=== PATIENT | male | born 1935 | race Caucasian/White ===

== ENCOUNTER 2016-06-07 11:44 | Inpatient (IN) | payer OTHER ==
[~2016-06-07] VITALS: Ht 167.6 cm; Wt 74.4 kg
[~2016-06-07 11:44] MED LIST: ACTOS15 MG PO; AQUAPHOR OINTM105 GM TP; Bactrim,Septra DS 80 PO; Cipro PO; DIOVAN320 MG PO; Diabeta,Micronase PO; Ecotrin PO; Glucophage PO; Lasix PO; Lopressor PO; Neurontin PO; PERCOCET 10/1 TABLET PO; Plavix PO; Pravachol PO
[2016-06-07 13:01] LABS: MCH 29.3 PG (29.0-34.0); MCHC 33.3 G/DL (30.0-36.0); MCV 88.1 FL (86-99); MEAN PLAT.VOLUME 9.8 uM^3 (9.0-12.4); PLATELET COUNT 164 K/uL (156-360); RBC DIS.WIDTH-CV 12.6 % (11.8-14.6); RBC DIS.WIDTH-SD 40.7 % (39-53); RED BLOOD COUNT 4.54 M/uL (4.00-5.50); WHITE BLOOD COUNT 9.9 K/uL (4.1-10.2)
[2016-06-07 13:38] LABS: TROP-I INTERPRETATION NEGATIVE; TROPONIN-I 0.28 ng/mL (0.0-0.30)
[2016-06-07 13:39] LABS: ANION GAP 11 MEQ/L (2-14); CHLORIDE 104 MEQ/L (99-109); GFR ESTIMATE (CALCULATED) 48 mL/min/; GLUCOSE 229 mg/dL (70-99); POTASSIUM 4.6 MEQ/L (3.7-5.4); SAMPLE HEMOLYSIS CHECK 0; SAMPLE ICTERIC CHECK 0; SAMPLE LIPEMIA CHECK 0; SODIUM 140 MEQ/L (136-147); UREA NITROGEN (BUN) 35 mg/dL (9-23)
[2016-06-07 15:22] LABS: TROP-I INTERPRETATION NEGATIVE; TROPONIN-I 0.27 ng/mL (0.0-0.30)
[2016-06-07] MEDS ORDERED: GABAPENTIN400 MG PO (20:21)
[2016-06-07] MEDS ORDERED: LO-DOSE ASPIRIN81 M2 PO (20:21)
[2016-06-07] MEDS ORDERED: PLAVIX75 MG PO (20:21)
[2016-06-07] MEDS ORDERED: METOPROLOL TART50 MG PO (20:21)
[2016-06-07] MEDS ORDERED: PRAVASTATIN SOD80 MG PO (20:24)
[2016-06-07] MEDS ORDERED: GLIPIZIDE5 MG PO (20:24)
[2016-06-07] MEDS ORDERED: DIOVAN HCT 31 TABLET PO (20:24)
[2016-06-07] MEDS ORDERED: METFORMIN HCL500 MG PO (20:24)
[2016-06-07] MEDS ORDERED: PERCOCET 7.51 TABLET PO ×2 (20:25)
[2016-06-07 21:01] VITALS: BP 177/74
[2016-06-07 21:55] LABS: POINT-OF-CARE METER ID UU13113831
[2016-06-07 23:09] LABS: TROP-I INTERPRETATION NEGATIVE; TROPONIN-I 0.25 ng/mL (0.0-0.30)
[2016-06-08] VITALS (12 sets, daily range): BP systolic 112–180; BP diastolic 37–80
[2016-06-08 07:18] LABS: HEMATOCRIT 37.8 % (38.0-50.0); MCH 29.2 PG (29.0-34.0); MCHC 33.3 G/DL (30.0-36.0); MCV 87.5 FL (86-99); MEAN PLAT.VOLUME 9.7 uM^3 (9.0-12.4); PLATELET COUNT 154 K/uL (156-360); RBC DIS.WIDTH-CV 12.6 % (11.8-14.6); RED BLOOD COUNT 4.32 M/uL (4.00-5.50); WHITE BLOOD COUNT 10.1 K/uL (4.1-10.2)
[2016-06-08 07:29] LABS: ANION GAP 10 MEQ/L (2-14); CHLORIDE 109 MEQ/L (99-109); GFR ESTIMATE (CALCULATED) 52 mL/min/; GLUCOSE 227 mg/dL (70-99); POTASSIUM 4.5 MEQ/L (3.7-5.4); SAMPLE HEMOLYSIS CHECK 0; SAMPLE ICTERIC CHECK 0; SAMPLE LIPEMIA CHECK 0; SODIUM 142 MEQ/L (136-147); UREA NITROGEN (BUN) 31 mg/dL (9-23)
[2016-06-08 07:35] LABS: TROP-I INTERPRETATION NEGATIVE; TROPONIN-I 0.21 ng/mL (0.0-0.30); TROPONIN-I 0.23 ng/mL (0.0-0.30)
[2016-06-08 12:18] LABS: TROP-I INTERPRETATION NEGATIVE; TROPONIN-I 0.23 ng/mL (0.0-0.30)
[2016-06-08 12:57] LABS: POINT-OF-CARE METER ID UU13113803
[2016-06-08 13:46] LABS: METH RESISTANT S AUREUS PCR NEGATIVE (NEGATIVE)
[2016-06-08 13:48] LABS: PROBE CHECK PASS; SPECIMEN PROCESSING CONTROL PASS
[2016-06-08 14:47] LABS: INTER. NORMALIZED RATIO 1.2; PROTHROMBIN TIME 12.1 (9.2-11.2); PTT 35.9 (25-32)
[2016-06-08 18:06] LABS: POINT-OF-CARE METER ID UU14174217
[2016-06-08 22:45] LABS: POINT-OF-CARE METER ID UU14174217
[2016-06-09] VITALS (13 sets, daily range): BP systolic 106–149; BP diastolic 44–63
[2016-06-09 09:08] LABS: MCH 29.5 PG (29.0-34.0); MCHC 33.8 G/DL (30.0-36.0); MCV 87.2 FL (86-99); MEAN PLAT.VOLUME 9.6 uM^3 (9.0-12.4); PLATELET COUNT 145 K/uL (156-360); RBC DIS.WIDTH-CV 12.9 % (11.8-14.6); RBC DIS.WIDTH-SD 40.9 % (39-53); WHITE BLOOD COUNT 9.8 K/uL (4.1-10.2)
[2016-06-09 09:43] LABS: POINT-OF-CARE METER ID UU14162636
[2016-06-09 12:45] LABS: POINT-OF-CARE METER ID UU14162636
[2016-06-09 17:51] LABS: POINT-OF-CARE METER ID UU14162636
[2016-06-10] VITALS (9 sets, daily range): BP systolic 109–143; BP diastolic 35–64
[2016-06-10 06:06] LABS: ANION GAP 13 MEQ/L (2-14); CHLORIDE 105 MEQ/L (99-109); GFR ESTIMATE (CALCULATED) 45 mL/min/; GLUCOSE 166 mg/dL (70-99); POTASSIUM 4.2 MEQ/L (3.7-5.4); SAMPLE HEMOLYSIS CHECK 0; SAMPLE ICTERIC CHECK 0; SAMPLE LIPEMIA CHECK 0; SODIUM 139 MEQ/L (136-147); UREA NITROGEN (BUN) 34 mg/dL (9-23)
[2016-06-10 17:30] LABS: POINT-OF-CARE METER ID UU14162636
[2016-06-11 05:58] LABS: POINT-OF-CARE METER ID UU14162636
[2016-06-11 06:05] LABS: EOSINOPHIL (%) 1.9 % (0-5); EOSINOPHIL COUNT 0.2 K/uL (0-0.3); HEMATOCRIT 33.5 % (38.0-50.0); IMMATURE GRANULOCYTE (%) 0.6 % (0.0-0.7); IMMATURE GRANULOCYTE COUNT 0.1 K/uL; INSTRUMENT ABS NEUTROPHIL CT 7.4 K/uL; MCH 29.8 PG (29.0-34.0); MCHC 34.3 G/DL (30.0-36.0); MCV 86.8 FL (86-99); MEAN PLAT.VOLUME 9.5 uM^3 (9.0-12.4); NEUTROPHIL (%) 76.6 % (45-76); NEUTROPHIL COUNT 7.4 K/uL (1.8-6.4); PLATELET COUNT 171 K/uL (156-360); RBC DIS.WIDTH-CV 12.7 % (11.8-14.6); RBC DIS.WIDTH-SD 40.2 % (39-53); RED BLOOD COUNT 3.86 M/uL (4.00-5.50); WHITE BLOOD COUNT 9.6 K/uL (4.1-10.2)
[2016-06-11 06:32] LABS: ALKALINE PHOSPHATASE 43 IU/L (3-129); ANION GAP 12 MEQ/L (2-14); CHLORIDE 104 MEQ/L (99-109); GFR ESTIMATE (CALCULATED) 45 mL/min/; GLUCOSE 153 mg/dL (70-99); POTASSIUM 3.8 MEQ/L (3.7-5.4); SAMPLE HEMOLYSIS CHECK 0; SAMPLE ICTERIC CHECK 0; SAMPLE LIPEMIA CHECK 0; SODIUM 140 MEQ/L (136-147); TOTAL BILIRUBIN 1.1 MG/DL (0.0-1.0); UREA NITROGEN (BUN) 40 mg/dL (9-23)
[2016-06-11 08:00] VITALS: BP 130/58
[2016-06-11 09:53] LABS: POINT-OF-CARE METER ID UU13113803
[2016-06-11 12:00] VITALS: BP 109/49
[2016-06-11 12:12] LABS: POINT-OF-CARE METER ID UU13113803
[2016-06-11] MEDS ORDERED: VALSARTAN160 MG PO (14:08)
[2016-06-11] MEDS ORDERED: RANEXA500 MG PO (14:08)
[2016-06-11] MEDS ORDERED: JANUVIA25 M1 PO (15:33)
[2016-06-11 20:18] LABS: POINT-OF-CARE METER ID UU14174217
== END 2016-06-11 16:15 | disposition home or self-care (01) | DRG 303 ==
LOC: EME 11:44 → 5WEST 18:28 → EDOF 18:28 → 5WEST 20:43 → 4WEST 06-08 11:03 → 5WEST 06-08 11:03 → 4WEST 06-08 12:02
PROVIDERS: Family Medicine; Hospitalist; Internal Medicine Cardiovascular Disease; Nurse Practitioner Adult Health; Nurse Practitioner Family; Pediatrics; Physician Assistant
DX: I25.110 Atherosclerotic heart disease of native coronary artery with unstable angina pectoris (principal); I13.0 Hypertensive heart and chronic kidney disease with heart failure and stage 1 through stage 4 chronic kidney disease, or unspecified chronic kidney disease; I50.9 Heart failure, unspecified; E11.42 Type 2 diabetes mellitus with diabetic polyneuropathy; E11.22 Type 2 diabetes mellitus with diabetic chronic kidney disease; E78.5 Hyperlipidemia, unspecified; Z86.73 Personal history of transient ischemic attack (TIA), and cerebral infarction without residual deficits; H44.9 Unspecified disorder of globe; I87.2 Venous insufficiency (chronic) (peripheral); Z95.1 Presence of aortocoronary bypass graft; I71.6 Thoracoabdominal aortic aneurysm, without rupture; G89.29 Other chronic pain; N18.2 Chronic kidney disease, stage 2 (mild); Z87.891 Personal history of nicotine dependence
CPT/HCPCS: 71010; 71020; 71275; 74174; 74176; 80048; 80053; 82565; 82948; 83880; 84484; 84520; 85025; 85027; 85610; 85730; 87641; 93005; 93306; 93970; 99281; 99285; G0378; J1650; J1815; J1940; J2270; J7030

== ENCOUNTER 2016-08-16 10:15 | Inpatient (IN) | payer OTHER ==
[~2016-08-16] VITALS: Ht 170.2 cm; Wt 66.6 kg
[~2016-08-16 10:15] MED LIST changes: +DIOVAN HCT 31 TABLET PO; +GABAPENTIN400 MG PO; +GLIPIZIDE5 MG PO; +JANUVIA25 M1 PO; +LO-DOSE ASPIRIN81 M2 PO; +METFORMIN HCL500 MG PO; +METOPROLOL TART50 MG PO; +PERCOCET 7.51 TABLET PO; +PLAVIX75 MG PO; +PRAVASTATIN SOD80 MG PO; +RANEXA500 MG PO; +VALSARTAN160 MG PO
[2016-08-16] MEDS ORDERED: ASPIRIN325 MG PO (10:33)
[2016-08-16 11:02] LABS: HEMATOCRIT 37.7 % (38.0-50.0); MCH 29.6 PG (29.0-34.0); MCHC 32.9 G/DL (30.0-36.0); MEAN PLAT.VOLUME 9.2 uM^3 (9.0-12.4); PLATELET COUNT 198 K/uL (156-360); RBC DIS.WIDTH-CV 13.2 % (11.8-14.6); RBC DIS.WIDTH-SD 43.5 % (39-53); RED BLOOD COUNT 4.19 M/uL (4.00-5.50); WHITE BLOOD COUNT 10.3 K/uL (4.1-10.2)
[2016-08-16 11:12] LABS: D-DIMER ELISA 2.33 mg/L FEU (< 0.57)
[2016-08-16 11:13] LABS: CHLORIDE 107 mEq/L (99-109); POTASSIUM 5.6 mEq/L (3.7-5.4); SODIUM 138 mEq/L (136-147)
[2016-08-16 11:14] LABS: GLUCOSE 313 mg/dL (70-99)
[2016-08-16 11:16] LABS: ANION GAP 10 MEQ/L (2-14)
[2016-08-16 11:18] LABS: GFR ESTIMATE (CALCULATED) 42 mL/min/
[2016-08-16 11:19] LABS: UREA NITROGEN (BUN) 30 mg/dL (9-23)
[2016-08-16 11:24] LABS: TROP-I INTERPRETATION NEGATIVE; TROPONIN-I 0.01 ng/mL (0.0-0.30)
[2016-08-16] MEDS ORDERED: JANUVIA25 M1 PO (12:02)
[2016-08-16] MEDS ORDERED: VALSARTAN320 MG PO (12:30)
[2016-08-16 17:53] VITALS: BP 152/70
[2016-08-16 19:22] VITALS: BP 135/64
[2016-08-16 23:38] VITALS: BP 128/58
[2016-08-17 06:31] LABS: EOSINOPHIL (%) 1.9 % (0-5); EOSINOPHIL COUNT 0.2 K/uL (0-0.3); HEMATOCRIT 34.6 % (38.0-50.0); IMMATURE GRANULOCYTE (%) 0.5 % (0.0-0.7); INSTRUMENT ABS NEUTROPHIL CT 5.7 K/uL; LYMPHOCYTE COUNT 1.4 K/uL (1.0-2.8); MCH 30.2 PG (29.0-34.0); MCHC 34.1 G/DL (30.0-36.0); MCV 88.5 FL (86-99); MEAN PLAT.VOLUME 9.4 uM^3 (9.0-12.4); MONOCYTE (%) 10.3 % (3-12); MONOCYTE COUNT 0.8 K/uL (0-0.8); NEUTROPHIL (%) 70.5 % (45-76); NEUTROPHIL COUNT 5.7 K/uL (1.8-6.4); PLATELET COUNT 182 K/uL (156-360); RBC DIS.WIDTH-CV 13.1 % (11.8-14.6); RBC DIS.WIDTH-SD 42.5 % (39-53); RED BLOOD COUNT 3.91 M/uL (4.00-5.50); WHITE BLOOD COUNT 8.1 K/uL (4.1-10.2)
[2016-08-17 06:52] LABS: ANION GAP 9 MEQ/L (2-14); CHLORIDE 102 MEQ/L (99-109); GFR ESTIMATE (CALCULATED) 42 mL/min/; GLUCOSE 191 mg/dL (70-99); POTASSIUM 4.7 MEQ/L (3.7-5.4); SAMPLE HEMOLYSIS CHECK 0; SAMPLE ICTERIC CHECK 0; SAMPLE LIPEMIA CHECK 0; SODIUM 138 MEQ/L (136-147); UREA NITROGEN (BUN) 31 mg/dL (9-23)
[2016-08-17 07:35] LABS: POINT-OF-CARE METER ID UU13113781
[2016-08-17] MEDS ORDERED: CEFTIN500 MG PO (08:01)
[2016-08-17] MEDS ORDERED: ZITHROMAX250 MG PO (08:01)
[2016-08-17 09:11] VITALS: BP 137/65
[2016-08-17 11:50] LABS: POINT-OF-CARE METER ID UU14174216
[2016-08-17 12:45] VITALS: BP 134/65
[2016-08-17 16:43] LABS: POINT-OF-CARE METER ID UU13113781
[2016-08-17 16:51] VITALS: BP 144/70
[2016-08-17 19:35] VITALS: BP 122/56
[2016-08-18 00:30] VITALS: BP 133/58
[2016-08-18 04:30] VITALS: BP 115/58
[2016-08-18 07:51] VITALS: BP 128/59
[2016-08-18 11:19] LABS: CHLORIDE 98 mEq/L (99-109); POTASSIUM 5.3 mEq/L (3.7-5.4); SODIUM 135 mEq/L (136-147)
[2016-08-18 11:22] LABS: ANION GAP 13 MEQ/L (2-14)
[2016-08-18 11:25] LABS: GFR ESTIMATE (CALCULATED) 33 mL/min/; UREA NITROGEN (BUN) 32 mg/dL (9-23)
[2016-08-18 11:38] LABS: GLUCOSE 425 mg/dL (70-99)
[2016-08-18 11:43] LABS: POINT-OF-CARE METER ID UU13113781
[2016-08-18 11:44] VITALS: BP 104/71
== END 2016-08-18 16:28 | disposition home or self-care (01) | DRG 194 ==
LOC: EME → EDBD 10:15 → 4EAST 13:22 → EDOF 13:22 → 4EAST 17:45
PROVIDERS: Emergency Medicine; Internal Medicine Cardiovascular Disease; Nurse Practitioner Adult Health; Pediatrics
DX: J18.9 Pneumonia, unspecified organism (principal); I13.0 Hypertensive heart and chronic kidney disease with heart failure and stage 1 through stage 4 chronic kidney disease, or unspecified chronic kidney disease; E11.22 Type 2 diabetes mellitus with diabetic chronic kidney disease; I50.9 Heart failure, unspecified; N18.2 Chronic kidney disease, stage 2 (mild); J98.11 Atelectasis; I25.10 Atherosclerotic heart disease of native coronary artery without angina pectoris; Z95.1 Presence of aortocoronary bypass graft; Z86.73 Personal history of transient ischemic attack (TIA), and cerebral infarction without residual deficits; J45.909 Unspecified asthma, uncomplicated; J44.9 Chronic obstructive pulmonary disease, unspecified; I73.9 Peripheral vascular disease, unspecified; Z86.14 Personal history of Methicillin resistant Staphylococcus aureus infection; G89.29 Other chronic pain; I87.2 Venous insufficiency (chronic) (peripheral); Z87.891 Personal history of nicotine dependence; I25.2 Old myocardial infarction
CPT/HCPCS: 71010; 78582; 80048; 82948; 83880; 84484; 85025; 85027; 85379; 87040; 93005; 94640; 94640 76; 94799; 99202; 99281; 99285; A9540; A9567; J0696; J1650; J1815; J1940; J1956; J2270; J7050